=== PATIENT | female | born 1960 | race Caucasian/White ===

== ENCOUNTER 2017-10-28 21:57 | Emergency (ER) | payer SELFPAY ==
[~2017-10-28] VITALS: Ht 170.2 cm; Wt 60.8 kg
[2017-10-28 22:01] VITALS: BP 143/85
[2017-10-28] MEDS ORDERED: DIPHENHYDRAMINE 25 MG CAPSULE ONE (22:30)
[2017-10-28] MEDS ORDERED: DIPHENHYDRAMINE 25 MG CAPSULE PO ONE (22:30)
== END 2017-10-28 23:33 | disposition home or self-care (01) ==
LOC: ED 23:20
DX: R22.0 Localized swelling, mass and lump, head (principal); T37.0X5A Adverse effect of sulfonamides, initial encounter; N30.90 Cystitis, unspecified without hematuria; Z90.710 Acquired absence of both cervix and uterus; Z88.1 Allergy status to other antibiotic agents; Y92.89 Other specified places as the place of occurrence of the external cause
CPT/HCPCS: 99283; J7512; Q0163